=== PATIENT | female | born 1980 | race Caucasian/White ===

== ENCOUNTER 2016-12-30 08:37 | Day surgery (SDC) | payer OTHER ==
[~2016-12-30] VITALS: Ht 165.1 cm; Wt 43.0 kg
[2016-12-30] VITALS (18 sets, daily range): BP systolic 102–138; BP diastolic 59–83; PULSE 52–87; RESP 15–26; Ht 165.1 cm; Wt 43.0 kg
[~2016-12-30 08:37] MED LIST: DIPHENHYDRAMINE 50 MG INJ IV PRN; FENTAnyl 50 MCG/ML VIAL IV PRN; HYDROmorphONE (0.2 MG/ML) 10ML SYG IV PRN; MEPERIDINE 25 MG INJ IV PRN; ONDANSETRON 4 MG INJ IV PRN; OXYCODONE/ACETAMINOPHEN (5/325) TAB PO PRN; PROCHLORPERAZINE 10 MG INJ IV PRN
[2016-12-30] MEDS ORDERED: OMEP20CA16 PO (09:25)
[2016-12-30] MEDS ORDERED: SOD CHLORIDE 0.9% 1,000 ML IV SCH (09:30)
[2016-12-30] MEDS ORDERED: CEFAZOLIN 2 GM/50 ML (PMX) 50 ML IVPB SCH (09:30)
[2016-12-30] MEDS ORDERED: BUPIVACAINE 0.25% (MPF) 30 ML INJ ONE (09:46)
[2016-12-30] MEDS ORDERED: FENTAnyl 50 MCG/ML VIAL ONE ×2 (09:56→11:57)
[2016-12-30] MEDS ORDERED: MIDAZOLAM 1 MG/ML 2 ML INJ ONE (09:56)
[2016-12-30] MEDS ORDERED: PROPOFOL 20 ML ONE (09:56)
[2016-12-30] MEDS ORDERED: CEFAZOLIN 1 GM INJ ONE (09:56)
[2016-12-30] MEDS ORDERED: ROCURONIUM 50 MG INJ ONE (09:56)
[2016-12-30] MEDS ORDERED: LIDOCAINE 2% (SDV) 5 ML INJ ONE (09:56)
[2016-12-30] MEDS ORDERED: SUCCINYLCHOLINE CHLORIDE 100 MG/5 ML SYG IV ONE (09:56)
[2016-12-30] MEDS ORDERED: DEXAMETHASONE 4 MG/ML 1 ML INJ ONE (10:37)
[2016-12-30] MEDS ORDERED: ONDANSETRON 4 MG INJ ONE (10:37)
[2016-12-30] MEDS ORDERED: KETOROLAC 30 MG INJ ONE (10:37)
[2016-12-30] MEDS ORDERED: METOCLOPRAMIDE 10 MG INJ ONE (10:37)
[2016-12-30] MEDS ORDERED: SCOPOLAMINE 1.5 MG PATCH ONE (10:37)
[2016-12-30] MEDS ORDERED: ACETAMINOPHEN 1000MG/100ML IV 100 ML ONE (10:37)
[2016-12-30] MEDS ORDERED: SUGAMMADEX SODIUM 200 MG/2 ML VIAL IV ONE (10:51)
[2016-12-30] MEDS ORDERED: IBUPROFEN 800 MG TAB PO ONE (11:00)
--- NOTE | 2016-12-30 11:00 | SIPON ---
Date/Time of Note Date/Time of Note DATE: 12/30/16 TIME: 10:59 Operative Report Preoperative Diagnosis symptomatic gallstones Postoperative Diagnosis same Operation/Procedure Performed 1. laparoscopic cholecystectomy 2. 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
--- NOTE | 2016-12-30 11:20 | OPR ---
DATE OF OPERATION: 12/30/2016 INDICATION: The patient is a 36-year-old female with symptomatic gallstones. She requests surgical excision of her gallbladder. Risks, alternatives, benefits of procedure were discussed with the patient. Patient expressed understanding. Consents to operation. PREOPERATIVE DIAGNOSIS: Symptomatic gallstones. POSTOPERATIVE DIAGNOSIS: Symptomatic gallstones. OPERATIONS: 1. Laparoscopic cholecystectomy. 2. Therapeutic subcutaneous Marcaine injection. SURGEON: Janette Alfaro SPECIMEN: Gallbladder. COMPLICATIONS: None. ANESTHESIA: General. ESTIMATED BLOOD LOSS: 10 mL. OPERATIVE PROCEDURE: The patient was taken to the operating room, prepped and draped in usual sterile fashion. Surgical time- out was performed. IV antibiotics were given. Infraumbilical incision was made with a 15 blade. This was made transversely. Dissection cautery was carried down to the fascia. The fascia was grasped with Tarah's and divided with curved Reyna scissors. A 0 Vicryl U stitch was placed into the fascia. Balloon Tracey trocar is introduced. Pneumoperitoneum was established. Mid epigastric 12 mm optical trocar was placed under direct visualization. Right upper quadrant and right upper flank 5 mm optical trocars were placed under direct visualization. The. Upon his initial inspection, there is some adhesions to the gallbladder. The gallbladder is retracted by grasping the fundus in the lateral and outward direction. Lateral dissection is initiated with hook cautery to allow careful mobilization of the cystic duct. Careful dissection of the cystic duct was performed. Further blunt dissection, allows the critical view. The cystic duct and cystic artery are divided using 3 clips proximal and distally divided with a 35 mm echelon vascular stapler. The gallbladder was taken off the gallbladder bed. There was good hemostasis. The gallbladder is retrieved using an EndoCatch bag. The ports removed under direct visualization. The 0 Vicryl U stitch was tied down. Skin is closed using skin kyle. Therapeutic subcutaneous Marcaine is injected throughout the incision sites. Dry dressings were applied. Dictated By: Janette Alfaro /clara/chaya /Document#: [id number]
== END 2016-12-30 13:49 | disposition home or self-care (01) ==
LOC: SDS 08:37
PROVIDERS: ATTEND Surgery
DX: K80.20 Calculus of gallbladder without cholecystitis without obstruction (principal); J45.909 Unspecified asthma, uncomplicated; K21.9 Gastro-esophageal reflux disease without esophagitis; F17.200 Nicotine dependence, unspecified, uncomplicated; Z88.5 Allergy status to narcotic agent; Z88.8 Allergy status to other drugs, medicaments and biological substances
CPT/HCPCS: 47562; 88304; J0131; J0690; J1100; J1885; J2250; J2405; J2765; J3010; Z7512; Z7610; J7999